=== PATIENT | female | born 1955 | race Hispanic/Latino ===

== ENCOUNTER 2018-08-24 13:00 | Outpatient (RCR) | payer MEDICARE | END 2018-08-24 14:00 | disposition home or self-care (01) | LOC: PT 13:00 | PROVIDERS: ATTEND Physician Assistant Medical | DX: M25.559 Pain in unspecified hip (principal); R26.2 Difficulty in walking, not elsewhere classified ==

== ENCOUNTER → 2018-11-10 | Day surgery (SDC) | payer MEDICARE ==
[~2018-11-10] VITALS: Ht 157.5 cm; Wt 99.8 kg
[~2018-11-10] MED LIST: BACLOFEN20 MG PO; CELECOXIB200 MG PO; FUROSEMIDE40 MG PO; INVOKANA300 MG PO; LEVOTHYROXIN75 MC1 PO; LIPITOR20 M1 PO; LISINOPRIL40 MG PO; METFORMIN HCL1000 MG PO; METOLAZONE5 MG PO; NIFEDIPINE ER30 MG PO; NOVOLIN 70/30 INNLT SC; TRULICITY0.75 MG/0. IJ
[2018-11-10 09:30] VITALS: BP 91/50
== END | disposition home or self-care (01) ==
LOC: ORM 07:06
PROVIDERS: ATTEND Anesthesiology Pain Medicine
PROC: 3E0U33Z Introduction of Anti-inflammatory into Joints, Percutaneous Approach (ICD-10-PCS; principal; 2018-11-10)
PROC: 3E0U3BZ Introduction of Anesthetic Agent into Joints, Percutaneous Approach (ICD-10-PCS; 2018-11-10)
DX: M70.62 Trochanteric bursitis, left hip (principal); M76.32 Iliotibial band syndrome, left leg

== ENCOUNTER 2018-11-24 06:43 | Day surgery (SDC) | payer MEDICARE ==
[~2018-11-24 06:43] MED LIST changes: -NOVOLIN 70/30 INNLT SC
[2018-11-24] MEDS ORDERED: NOVOLIN 70/30 INNLT SC (07:04)
[2018-11-24 08:57] VITALS: BP 95/58
== END 2018-11-24 09:15 | disposition home or self-care (01) ==
LOC: ORM 06:43
PROVIDERS: ATTEND Anesthesiology Pain Medicine
DX: M70.62 Trochanteric bursitis, left hip (principal); M76.32 Iliotibial band syndrome, left leg

== ENCOUNTER 2022-04-08 10:19 | Emergency (ER) | payer MEDICARE ==
[~2022-04-08] VITALS: Ht 157.5 cm; Wt 104.3 kg
[~2022-04-08 10:19] MED LIST changes: +NOVOLIN 70/30 INNLT SC
[2022-04-08 11:58] VITALS: BP 200/123
[2022-04-08 12:00] VITALS: BP 203/83
[2022-04-08 12:31] VITALS: BP 184/78
[2022-04-08 14:14] VITALS: BP 184/78
== END 2022-04-08 14:50 | disposition home or self-care (01) ==
LOC: ED 10:19
DX: S00.11XA Contusion of right eyelid and periocular area, initial encounter (principal); S00.83XA Contusion of other part of head, initial encounter; I10 Essential (primary) hypertension; W01.198A Fall on same level from slipping, tripping and stumbling with subsequent striking against other object, initial encounter; Y92.049 Unspecified place in boarding-house as the place of occurrence of the external cause